=== PATIENT | female | born 1990 | race Caucasian/White ===

== ENCOUNTER 2018-10-18 12:06 | Emergency (ER) | payer OTHER, SELFPAY ==
[~2018-10-18] VITALS: Ht 157.5 cm; Wt 87.0 kg
[2018-10-18 12:11] VITALS: BP 146/98
== END 2018-10-18 13:27 | disposition home or self-care (01) ==
LOC: ED 13:16
DX: J01.10 Acute frontal sinusitis, unspecified (principal); J01.00 Acute maxillary sinusitis, unspecified
CPT/HCPCS: 99283